=== PATIENT | male | born 1965 | race African-American/Black ===

== ENCOUNTER 2016-05-02 15:04 | Emergency (ER) | payer OTHER ==
[~2016-05-02] VITALS: Ht 188 cm; Wt 117.9 kg
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
[2016-05-02 15:08] VITALS: BP 147/73
[2016-05-02] MEDS ORDERED: LISINOPRIL-HCT1 EAC2 PO (15:12)
[2016-05-02] MEDS ORDERED: FLOMAX0.4 M1 PO (15:13)
[2016-05-02] MEDS ORDERED: ATENOLOL25 M1 PO (15:13)
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
== END 2016-05-02 16:00 ==
LOC: ERH
DX: S46.812A Strain of other muscles, fascia and tendons at shoulder and upper arm level, left arm, initial encounter (principal); V49.40XA Driver injured in collision with unspecified motor vehicles in traffic accident, initial encounter
CPT/HCPCS: 73080-LT